=== PATIENT | male | born 1995 | race Caucasian/White ===

== ENCOUNTER 2024-10-27 15:04 | Outpatient (AMB) | payer OTHER, SELFPAY ==
--- NOTE | 2024-10-27 15:21 | A.OFFPC_ITS ---
Vital Signs 10/27/24 15:23 Height 5 ft 8.11 in Weight 235 lb 4 oz BMI 35.7 BP 130/68 Blood Pressure Location Lt brachial Position Sitting Pulse 84 Pulse Source Pulse Oximeter Temp 97.3 F Temp Source Temporal Artery Scan Pulse Oximetry (%) 96 Oxygen Delivery Method Room Air Intake Visit Reasons: New Patient Intake Note: Patient is a new patient here to establish care for ADHD, Autism, Tourette syndrome. Transferring care from Dr Dickson ([facility]). Medical records have been requested and have not received. Blending Supervisor Required: No Technical Support Assistant: Present Accompanied by: Grand Parent Allergies No Known Allergies Allergy (Verified 10/27/24 15:36) Medication List - Last Reconciled 10/27/24 by Bryan Mcdonald PA-C Unobtainable Tobacco use date assessed: 10/27/24 Dental Screening Dental Screen Date: 10/27/24 Did you have a dental visit in the last 12 months?: Yes Did you have a dental problem in the last 6 months where you did not have access to dental care?: No Was dental information given to patient?: Patient has dentist HPI New Patient HPI Details The patient is a 29-year-old male presenting with autism spectrum disorder for ongoing management and assessment of associated behavioral and social issues. Previously followed by Dr. Dickson in pediatric care due to disability, the patient transitioned to adult care but has not had consistent physician follow-ups in recent years. The patient?s autism has resulted in significant social isolation and anxiety, impacting daily activities and employability. He has experienced other behavioral challenges including ADHD and Tourette's Syndrome, previously managed with Concerta during his school years, but has not continued medication since graduation. Speech delays were addressed with early life speech therapy. Asthma is a component of his medical history, currently controlled without pharmacotherapy. The patient?s heart murmur noted at resolved spontaneously. Current concerns center around managing autism-related behaviors, social engagement limitations, and securing assistance and services for disability assessment, compounded by the need to address obesity. [facility] Surgical History History of appendectomy Family History (Updated 10/27/24 @ 15:45 by Bryan Mcdonald PA-C) Father DMII (diabetes mellitus, type 2) Brother Autism Social History Housing: House Alcohol intake: never Patient Tobacco Use Status: Never used Tobacco e-Cigarette/Vaping Use: Never Used Second Hand Smoke Exposure: No service: No Current occupational status: unemployed and disabled Cognitive needs: No Hearing needs: No Vision needs: No Questionnaire PHQ-9 Over the last 2 weeks, how often have you been bothered by any of the following problems? 1. Little interest or pleasure in doing things: not at all 2. Feeling down, depressed, or hopeless: not at all 3. Trouble falling or staying asleep, or sleeping too much: not at all 4. Feeling tired or having little energy: not at all 5. Poor appetite or overeating: not at all 6. Feeling bad about yourself - or that you are a failure or have let yourself or your family down: not at all 7. Trouble concentrating on things, such as reading the newspaper or watching television: not at all 8. Moving or speaking so slowly that other people could have noticed. Or the opposite - being so fidgety or restless that you have been moving around a lot more than usual: not at all 9. Thoughts that you would be better off or of hurting yourself in some way: not at all Total score: 0 Depression Screening Interpretation: Negative Depression Screening Done: Yes 50810 - PHQ-9 Billing: Yes Source: Developed by Drs. Thom Pryor, Angelina Villagomez, Floyd Black and colleagues, with an educational sterling from [employer]. Thrive Questionnaire Date Thrive assessed: 10/27/24 I am a: Patient What is your living situation today?: I have a steady place to live Within the past 12 months, did the food you bought not last and you didn't have the money to get more?: Sometimes True Within the past 12 months, did you worry whether your food would run out before you got money to buy more?: I choose not to answer this question Do you have trouble paying for medicines?: No Do you have trouble getting transportation to medical appointments?: Yes Do you have trouble paying your heating and electricity bill?: No Do you have trouble taking care of your child, family member or friend?: No Do you have trouble with day-to-day activities such as bathing, preparing meals, shopping, managing finances, etc.?: No Are you currently unemployed and looking for a job?: Yes Are you interested in more education?: Yes Please select the resources that you would like help with: Job search/training Currently or been in a relationship where the following occur: No concerns reported THRIVE Score: 2 AUDIT C Alcohol Use Questionnaire (AUDIT-C) 1. How often do you have a drink containing alcohol?: Never Total Score: 0 BISI-7 AMB Questionnaire BISI-7 Date BISI - 7 assessed: 10/27/24 Feeling nervous, anxious, or on edge: 0 = Not at all Not being able to stop or control worryin = Not at all Worrying too much about different things: 0 = Not at all Trouble relaxin = Not at all Being so restless that it is hard to sit still: 0 = Not at all Becoming easily annoyed or irritable: 1 = Several days Feeling afraid as if something awful might happen: 0 = Not at all Total BISI-7 score (0-4 normal; 5-9 mild; 10-14 moderate; 15-21 severe): 1 Source: Developed by Drs. Thom Pryor, Angelina Villagomez, Floyd Black and colleagues, with an educational sterling from [employer]. BISI-7 Assessment Billing BISI-7 Assessment Tool: BISI-7 Assessment 42468 Review of Systems Const Denies headache(s) Eyes Denies loss of vision ENT Denies vertigo, Denies dizziness, Denies headache(s) and Denies sore throat Card Denies chest pain, Denies leg edema and Denies lightheadedness Resp Denies cough, Denies hemoptysis and Denies wheezing GI Denies abdominal pain, Denies melena, Denies constipation, Denies diarrhea and Denies vomiting Denies dysuria, Denies urinary frequency and Denies urinary urgency Musc Denies arthralgias, Denies joint swelling, Denies numbness and Denies tingling Neuro Denies Abnormal speech present, Denies behavioral changes, Denies vertigo, Denies dizziness, Denies headache(s), Denies loss of vision, Denies memory loss, Denies numbness and Denies tingling Psych Denies anxiety, Denies behavioral changes, Denies depression, Denies memory loss and Denies panic attacks Ramez/Lymph Denies easy bleeding and Denies easy bruising Aller/Immun Denies wheezing Physical exam (Primary Care) Vital Signs: Last Vital Signs Temp 97.3 F 10/27/24 15:23 Pulse 84 10/27/24 15:23 BP 130/68 10/27/24 15:23 Pulse Ox 96 10/27/24 15:23 Oxygen Delivery Method Room Air 10/27/24 15:23 BMI result Body Mass Index 35.7 BMI Assessment/Plan discussion: High BMI High, discussed plan: lifestyle, weight reduction, dietary and physical activity Tobacco/Smoking Status: Tobacco use Status Tobacco use date assessed 10/27/24 10/27/24 15:33 Patient Tobacco Use Status Never used Tobacco 10/27/24 15:33 e-Cigarette/Vaping Use Never Used 10/27/24 15:33 PHQ-9: PHQ-9 Score PHQ-9: Total score 0 10/27/24 15:41 Depression Screening Interpretation: Negative Thrive Assessment: Date of Thrive Assessment Date Thrive assessed 10/27/24 10/27/24 15:33 Currently or been in a relationship where the following occur: No concerns reported Const General: healthy appearing, no acute distress, alert and awake Nutritional Appearance: well nourished Orientation/consciousness: oriented to person, oriented to place and oriented to time HENMT Ears: TM's normal bilaterally General nose exam: Normal nasal mucous membranes and turbinates present Eyes Conjunctivae: conjunctivae normal Sclerae: sclerae normal Pupils: Equal, round and reactive pupils present Neck Neck: Yes no lymphadenopathy and Yes no JVD Thyroid: Thyroid normal Carotids: no bruits Resp Effort & Inspection: normal respiratory effort and not tachypneic Auscultation: no crackles, no rales, no rhonchi and no wheezes Cardio Rate: regular rate Rhythm: regular rhythm Heart sounds: no murmurs and normal S1 and S2 GI Palpation (GI): Soft to palpation, nontender, no hepatomegaly and no splenomegaly Auscultation: normal bowel sounds Skin General skin exam: no rashes or lesions noted and dry skin Neuro General: oriented to person, oriented to place and oriented to time Cranial nerves: Yes Equal, round and reactive pupils present Speech: No Abnormal speech present Gait exam (Neuro): Normal gait present Motor exam (neuro): no tremor noted Extrem Right upper extremity: full ROM Left upper extremity: full ROM Right lower extremity: full ROM; no edema Left lower extremity: full ROM; no edema Psych Mental Status: mental status grossly normal Speech and movement: Normal speech and movement present Affect: normal affect Attitude: cooperative Thought process: Normal thought process present Coding Level of Care Code New Pt Level 4 (73258) Diagnoses Autism F84.0 Attention deficit hyperactivity disorder (ADHD), predominantly hyperactive type F90.1 Attention deficit-hyperactivity disorder type: predominantly hyperactive Screening for diabetes mellitus (DM) Z13.1 Mild intermittent asthma without complication J45.20 Asthma complication type: uncomplicated Asthma persistence: intermittent Asthma severity: mild BISI (generalized anxiety disorder) F41.1 Class 2 obesity E66.812 Additional Codes PHQ-9 - 82367 - PHQ-9 Billing: Yes ([id number]) BISI-7 Assessment Billing - BISI-7 Assessment Tool: BISI-7 Assessment 65004 ([id number]) Assessment & Plan Assessment & Plan (1) Autism: Code(s): F84.0 - Autistic disorder Category: Medical Plan: Priority is given to addressing social isolation and anxiety. A psychiatric evaluation is recommended to explore therapeutic interventions. Enrollment in autism support networks or programs is advised. (2) ADHD: Code(s): F90.9 - Attention-deficit hyperactivity disorder, unspecified type Category: Medical Qualifiers: Attention deficit-hyperactivity disorder type: predominantly hyperactive Qualified Code(s): F90.1 - Attention-deficit hyperactivity disorder, predominantly hyperactive type Plan: Consider pharmacological intervention or reevaluation post-psychiatric assessment for symptom management. (3) Screening for diabetes mellitus (DM): Code(s): Z13.1 - Encounter for screening for diabetes mellitus Category: Medical Plan: As per HPI (4) Asthma: Code(s): J45.909 - Unspecified asthma, uncomplicated Category: Medical Qualifiers: Asthma complication type: uncomplicated Asthma persistence: intermittent Asthma severity: mild Qualified Code(s): J45.20 - Mild intermittent asthma, uncomplicated Plan: Patient's asthma has been well controlled without the use of medication. May have had a juvenile type asthma. Has not had to use albuterol inhaler in quite some time. (5) BISI (generalized anxiety disorder): Code(s): F41.1 - Generalized anxiety disorder Category: Medical Plan: Patient does seem to exhibit some signs of anxiety as well. Does pick at his skin quite often per family. (6) Class 2 obesity: Code(s): E66.812 - Obesity, class 2 Category: Medical Plan: Implement dietary and lifestyle changes aimed at weight reduction. Blood work to assess metabolic risks is planned. Orders: Orders Comprehensive Melissa. Panel Fast 10/27/24 Z13.1 - Encounter for screening for diabetes mellitus Complete Blood Count no Diff 10/27/24 Z13.1 - Encounter for screening for diabetes mellitus Referrals Psychiatry Outpatient Consultation Service F84.0 - Autistic disorder, F90.1 - Attention-deficit hyperactivity disorder, predominantly hyperactive type
[2024-10-27 15:23] VITALS: BP 130/68; PULSE 84; TEMP 36.3; O2SAT 96; BMI 35.7
--- OUTSIDE RECORDS SUMMARY | 2024-10-27 18:40 | XMS_ITS | Clinical Summary ---
Author Organization [facility] Address [address] [place] [address] Phone Care Team Providers Care Geomagnetist Name Role Phone Fito Dickson MD Primary Care Provider [phone] Allergies No known active allergies Medications No known medications Active Problems Problem Noted Date Diagnosed Date Obesity 03/18/2019 Abscess of axilla, left 05/12/2018 Family History Medical History Relation Name Comments No Known Problems Brother 1 Bryan No Known Problems Brother 2 Ramin No Known Problems Father No Known Problems Maternal Grandfather No Known Problems Maternal Grandmother No Known Problems Mother Renu No Known Problems Paternal Grandfather No Known Problems Paternal Grandmother Relation Name Status Comments Brother 1 Bryan Alive Brother 2 Ramin Alive Father Maternal Grandfather Maternal Grandmother Mother Renu Alive Paternal Grandfather Paternal Grandmother Social History Tobacco Use Types Packs/Day Years Used Date Smoking Tobacco: Never Smokeless Tobacco: Never Alcohol Use Standard Drinks/Week Comments Never 0 (1 standard drink = 0.6 oz pur e alcohol) Hunger/Food Answer Date Recorded No 05/27/2020 Stable Housing Answer Date Recorded No 05/27/2020 Transportation Concerns Answer Date Rec orded No 05/27/2020 Hazards in Home Answer Date Recorded No 07/17/2020 Financing Utilities Answer Date Recorde d No 07/17/2020 Safety at Home Answer Date Recorded No 07/17/2020 Outside Support Answer Date Recorded No 07/17/2020 Understanding Health Concerns Answer Da te Recorded No 07/17/2020 Financing Health Concerns Answer Date R ecorded No 07/17/2020 Missing School or Work Answer Date Daryl rded No 07/17/2020 Sex and Gender Information Value Date Recorded Sex Assigned at Not on file Legal Sex Male 3:21 PM EDT Gender Identity Not on file Sexual Orientation Not on file Last Filed Vital Signs Vital Sign Reading Time Taken Comments Blood Pressure 110/80 03/18/2019 9:28 AM EDT Pulse 68 03/18/2019 9:28 AM EDT Temperature 36.7 ??C (98.1 ??F) 03/18/2019 9:28 AM ED T Respiratory Rate - - Oxygen Saturation - - Inhaled Oxygen Concentration - - Weight 99.1 kg (218 lb 6.4 oz) 03/18/2019 9:28 A M EDT Height 173.1 cm (5' 8.15 ) 03/18/2019 9:28 AM ED T Body Mass Index 33.06 03/18/2019 9:28 AM EDT Plan of Treatment Health Maintenance Due Date Last Done Comments MMR Vaccines (1 of 1 - Stand viktor series) 1995 Varicella Vaccines (1 of 2 - 13+ 2-dose series) 2007 Consider Men B Vaccine (1 of 2 - Bexsero 2-dose series) 2010 DTaP,Tdap,and Td Vaccines (1 - Tdap) 01/28/2012 Hepatitis B Vaccines (1 of 3 - 19+ 3-dose series) 2013 Influenza Vaccines (#1) 2024 COVID-19 Vaccine (1 - 2023-2 5 season) 2024 HIB Vaccines Aged Out No longer eligi ble based on patient's age to complete this topic HPV Vaccines Aged Out No longer eligi ble based on patient's age to complete this topic Hepatitis A Vaccines Aged Out No long er eligible based on patient's age to complete this topic IPV Vaccines Aged Out No longer eligi ble based on patient's age to complete this topic Men B Vaccine Aged Out No longer elig ible based on patient's age to complete this topic Meningococcal Vaccine Aged Out No ursula meg eligible based on patient's age to complete this topic Pneumococcal Vaccine Aged Out No long er eligible based on patient's age to complete this topic Insurance [employer] Care Teams Geomagnetist Relationship Specialty Start Date End Date Fito Dickson MD [address] [place] [place] [address] PCP - General Pediatrics 05/12/18
== END 2024-10-27 15:58 | disposition home or self-care (01) ==
PROVIDERS: Visit Provider Physician Assistant
DX: J45.20 Mild intermittent asthma, uncomplicated (principal); F84.0 Autistic disorder; E66.812 Obesity, class 2; Z68.35 Body mass index [BMI] 35.0-35.9, adult; F90.1 Attention-deficit hyperactivity disorder, predominantly hyperactive type; Z13.1 Encounter for screening for diabetes mellitus; F41.1 Generalized anxiety disorder

== ENCOUNTER → 2024-10-27 15:04 | Outpatient (BNVA) | payer OTHER, SELFPAY | PROVIDERS: Visit Provider Physician Assistant | DX: F84.0 Autistic disorder (principal); F90.1 Attention-deficit hyperactivity disorder, predominantly hyperactive type; J45.20 Mild intermittent asthma, uncomplicated; F41.1 Generalized anxiety disorder; E66.812 Obesity, class 2; Z68.35 Body mass index [BMI] 35.0-35.9, adult; Z71.3 Dietary counseling and surveillance | CPT/HCPCS: 96127; 99202 ==

== ENCOUNTER 2024-11-02 09:25 | Outpatient (REF) | payer OTHER, SELFPAY ==
[2024-11-02 09:53] LABS: Hematocrit 44.8 % (42.0-52.0); Hemoglobin 15.2 g/dl (14.0-18.0); Mean Corpuscular HGB Conc 33.9 g/dl (31.0-36.0); Mean Corpuscular Hemoglobin 29.5 pg (27.0-33.0); Mean Corpuscular Volume 86.8 fL (80.0-98.0); Mean Platelet Volume 10.2 fL (9.4-12.4); Platelet Count 236 X10*3/uL (160-400); Red Blood Count 5.16 X10*6/uL (4.60-5.80); Red Cell Distribution Width 11.5 % (11.0-16.0); White Blood Count 7.1 X10*3/uL (4.8-10.8)
[2024-11-02 10:32] LABS: Alanine Aminotransferase 60 U/L (0-40); Albumin Level 4.2 g/dL (3.5-5.0); Alkaline Phosphatase 118 U/L (39-117); Anion Gap 11 (12-20); Aspartate Amino Transferase 31 U/L (5-37); Bilirubin Total 0.9 mg/dL (0.0-1.0); Blood Urea Nitrogen 18 mg/dL (9-16); Calcium 9.2 mg/dL (8.4-10.2); Carbon Dioxide 28 mmol/L (22-29); Chloride 108 mmol/L (96-108); Estimated Glomerular Filt Rate > 60; Glucose Fasting 89 mg/dL (60-99); Potassium 3.8 mmol/L (3.3-5.1); Sodium 143 mmol/L (135-145)
--- OUTSIDE RECORDS SUMMARY | 2024-11-02 10:33 | XMS_ITS | Clinical Summary ---
Author Organization [facility] Address [address] [place] [address] Phone Care Team Providers Care Director Of Casino Name Role Phone Fito Dickson MD Primary Care Provider [phone] Allergies No known active allergies Medications No [...] complete this topic Insurance [employer] Care Teams Director Of Casino Relationship Specialty Start Date End Date Fito Dickson MD [address] [facility] [place] [address] PCP - General Pediatrics 05/12/18
== END 2024-11-02 09:26 | disposition home or self-care (01) ==
LOC: HO.LAB 09:25
PROVIDERS: PCP Physician Assistant; Visit Provider Physician Assistant
DX: Z13.1 Encounter for screening for diabetes mellitus (principal)
CPT/HCPCS: 36415; 80053; 85027

== ENCOUNTER 2024-11-29 12:29 | Outpatient (REF) | payer OTHER, SELFPAY ==
--- NOTE | ~2024-11-29 | US_ITS ---
CLINICAL HISTORY: R74.8 - Abnormal levels of other serum enzymes US abdomen limited Comparison: None Findings: Fatty infiltration of the liver without focal abnormality. Visualized pancreas unremarkable. Gallbladder unremarkable without stones or wall thickening. Common duct 2.9 mm diameter. No ultrasonographic Carrasco sign. Right kidney normal, 10.8 cm in length. Impression: Fatty infiltration of the liver No acute process This document has been electronically signed by: Darrell Benito MD on 11/29/2024 20:40:23
--- OUTSIDE RECORDS SUMMARY | 2024-11-29 14:07 | XMS_ITS | Clinical Summary ---
Author Organization [facility] Address [address] [place] [address] Phone Care Team Providers Care Pulmonology Physician Name Role Phone Fito Dickson MD Primary Care Provider [phone] Allergies No known active allergies Medications No [...] of 2 - 13+ 2-dose series) 2007 DTaP,Tdap,and Td Vaccines (1 - Tdap) 01/28/2012 [...] complete this topic Insurance [employer] Care Teams Pulmonology Physician Relationship Specialty Start Date End Date Fito Dickson MD [facility] [place] [address] PCP - General Pediatrics 05/12/18
== END 2024-11-29 12:30 | disposition home or self-care (01) ==
LOC: HO.US 12:29
PROVIDERS: PCP Physician Assistant; Visit Provider Physician Assistant
DX: R74.8 Abnormal levels of other serum enzymes (principal)
CPT/HCPCS: 76705

== ENCOUNTER → 2024-11-29 12:31 | Outpatient (BNV) | payer OTHER, SELFPAY | PROVIDERS: PCP Physician Assistant; Visit Provider Radiology Diagnostic Radiology | DX: R74.01 Elevation of levels of liver transaminase levels (principal); K76.0 Fatty (change of) liver, not elsewhere classified | CPT/HCPCS: 76705 ==

== ENCOUNTER → 2024-12-02 13:06 | Outpatient (BNVA) | payer OTHER, SELFPAY | PROVIDERS: PCP Physician Assistant ==

== ENCOUNTER → 2024-12-13 14:29 | Outpatient (BNVA) | payer MEDICAID, SELFPAY | PROVIDERS: PCP Physician Assistant ==

== ENCOUNTER 2025-02-28 13:35 | Outpatient (REF) | payer OTHER, SELFPAY ==
[2025-02-28 15:37] LABS: Alanine Aminotransferase 48 U/L (0-40); Albumin Level 4.6 g/dL (3.5-5.0); Alkaline Phosphatase 112 U/L (39-117); Anion Gap 12 (12-20); Aspartate Amino Transferase 33 U/L (5-37); Bilirubin Total 0.7 mg/dL (0.0-1.0); Blood Urea Nitrogen 20 mg/dL (9-16); Calcium 9.4 mg/dL (8.4-10.2); Carbon Dioxide 27 mmol/L (22-29); Chloride 108 mmol/L (96-108); Estimated Glomerular Filt Rate > 60; Glucose Random 83 mg/dL (60-115); Potassium 4.1 mmol/L (3.3-5.1); Sodium 143 mmol/L (135-145); Total Protein 7.8 g/dL (6.5-8.0)
== END 2025-02-28 13:36 | disposition home or self-care (01) ==
LOC: HO.LAB 13:35
PROVIDERS: PCP Physician Assistant; Visit Provider Physician Assistant
DX: Z00.00 Encounter for general adult medical examination without abnormal findings (principal); Z23 Encounter for immunization; F84.0 Autistic disorder; F90.1 Attention-deficit hyperactivity disorder, predominantly hyperactive type; F41.1 Generalized anxiety disorder; R74.8 Abnormal levels of other serum enzymes
CPT/HCPCS: 36415; 80053; 90471; 90715; 99395

== ENCOUNTER 2025-02-28 13:35 | Outpatient (AMB) | payer OTHER, SELFPAY ==
--- NOTE | 2025-02-28 13:40 | A.OFFPC_ITS ---
Vital Signs 02/28/25 13:41 Height 5 ft 8.11 in BP 112/64 Blood Pressure Location Lt brachial Position Sitting Pulse 94 Pulse Source Pulse Oximeter Temp 97.5 F Temp Source Temporal Artery Scan Pulse Oximetry (%) 96 Oxygen Delivery Method Room Air Intake Visit Reasons: pe Packaging Operator Required: No Accompanied by: Grand Parent Allergies No Known Allergies Allergy (Verified 02/28/25 13:55) Medication List - Last Reconciled 02/28/25 by Bryan Mcdonald PA-C chlorhexidine gluconate 0.12% buccal BID Tobacco use date assessed: 10/27/24 Dental Screening Dental Screen Date: 10/27/24 HPI pe HPI Details The patient is a 30-year-old male presenting today for a routine annual physical.. Patient has a past medical history significant for generalized anxiety disorder, autism spectrum disorder and ADHD. The patient?s autism has resulted in significant social isolation and anxiety, impacting daily activities and employability. He has experienced other behavioral challenges including ADHD and Tourette's Syndrome, previously managed with Concerta during his school years, but has not continued medication since graduation. Speech delays were addressed with early life speech therapy. Current concerns center around managing autism-related behaviors, social engagement limitations, and securing assistance and services for disability assessment, Patient's family is looking to get Glenn reassessed by by psychiatrist to get the diagnosis of autism so that they can be candidates for disability Asthma is a component of his medical history, currently controlled without pharmacotherapy. Vaccines: Up-to-date with COVID vaccine, needs tetanus vaccine [facility] Surgical History History of appendectomy Family History Father DMII (diabetes mellitus, type 2) Brother Autism Social History Housing: House Alcohol intake: never Patient Tobacco Use Status: Never used Tobacco e-Cigarette/Vaping Use: Never Used Second Hand Smoke Exposure: No service: No Current occupational status: unemployed and disabled Cognitive needs: No Hearing needs: No Vision needs: No Questionnaire Thrive Questionnaire Date Thrive assessed: 02/28/25 I am a: Patient What is your living situation today?: I have a steady place to live Within the past 12 months, did the food you bought not last and you didn't have the money to get more?: Sometimes True Within the past 12 months, did you worry whether your food would run out before you got money to buy more?: I choose not to answer this question Do you have trouble paying for medicines?: No Do you have trouble getting transportation to medical appointments?: Yes Do you have trouble paying your heating and electricity bill?: No Do you have trouble taking care of your child, family member or friend?: No Do you have trouble with day-to-day activities such as bathing, preparing meals, shopping, managing finances, etc.?: No Are you currently unemployed and looking for a job?: Yes Are you interested in more education?: Yes Please select the resources that you would like help with: Job search/training Currently or been in a relationship where the following occur: No concerns reported THRIVE Score: 2 BISI-7 AMB Questionnaire BISI-7 Date BISI - 7 assessed: 10/27/24 Source: Developed by Drs. Thom Pryor, Angelina Villagomez, Floyd Black and colleagues, with an educational sterling from [employer]. Review of Systems Const Denies body aches, Denies chills, Denies excessive sweating, Denies fatigue, Denies fever(s) and Denies headache(s) Eyes Denies blurry vision ENT Denies dysphagia, Denies vertigo, Denies dizziness, Denies headache(s), Denies hearing loss and Denies tinnitus Card Denies chest pain, Denies chest pain with activity, Denies syncope, Denies irregular heart rhythm and Denies dyspnea Resp Denies chest congestion, Denies cough, Denies hemoptysis, Denies dyspnea and Denies wheezing GI Denies abdominal pain, Denies melena, Denies hematochezia, Denies coffee ground emesis, Denies dysphagia, Denies diarrhea, Denies nausea and Denies vomiting Denies difficulty urinating, Denies dysuria, Denies urinary frequency, Denies urinary hesitancy and Denies urinary urgency Musc Denies arthralgias, Denies limited range of motion, Denies muscle cramps and Denies muscle weakness Skin/Breast Denies rash and Denies skin ulcer Neuro Denies Abnormal speech present, Denies confusion, Denies vertigo, Denies dizziness, Denies syncope, Denies headache(s), Denies memory loss and Denies seizure-like activity Psych Denies anxiety, Denies confusion, Denies depression, Denies memory loss, Denies panic attacks and Denies paranoia Endo Denies excessive sweating, Denies fatigue, Denies flushing, Denies polydipsia and Denies polyuria Aller/Immun Denies wheezing Physical exam (Primary Care) Vital Signs: Last Vital Signs Temp 97.5 F 02/28/25 13:41 Pulse 94 02/28/25 13:41 BP 112/64 02/28/25 13:41 Pulse Ox 96 02/28/25 13:41 Oxygen Delivery Method Room Air 02/28/25 13:41 Tobacco/Smoking Status: Tobacco use Status Tobacco use date assessed 10/27/24 02/28/25 13:48 Patient Tobacco Use Status Never used Tobacco 02/28/25 13:48 e-Cigarette/Vaping Use Never Used 02/28/25 13:48 Thrive Assessment: Date of Thrive Assessment Date Thrive assessed 02/28/25 02/28/25 13:48 Currently or been in a relationship where the following occur: No concerns reported Const General: cooperative, comfortable, no acute distress, alert and awake; No confusion Orientation/consciousness: oriented to person, oriented to place, patient oriented x3 and No confusion HENMT Head: Yes normocephalic Ears: external ears normal and TM's normal bilaterally Face and sinus: No sinus tenderness Mouth: Normal oral and palatal mucosa present and tongue normal Teeth and gingiva: dentition normal and gingiva normal Throat: Yes posterior oropharynx normal, Yes tonsils normal and Yes uvula midline Eyes Conjunctivae: conjunctivae normal Sclerae: sclerae normal Pupils: Equal, round and reactive pupils present EOM: EOMs intact bilaterally Direct Ophthalmoscopy: No no photophobia Neck Neck: Yes no lymphadenopathy, No tender and Yes no JVD Thyroid: Thyroid normal Carotids: no bruits Chest Chest palpation & inspection: no tenderness Resp Effort & Inspection: normal respiratory effort, no audible wheezes, not labored and no stridor Auscultation: no crackles, no rales, no rhonchi and no wheezes Cardio Jugular venous distension: no JVD Rate: regular rate, not bradycardic and not tachycardic Rhythm: regular rhythm Bruits: no carotid bruits Peripheral pulses: Peripheral pulses 2+ throughout GI Inspection: Yes normal to inspection, No abdominal wall ecchymosis and No visible herniation Palpation (GI): Soft to palpation, nontender, no guarding, not rigid and No hepatosplenomegaly present Auscultation: normoactive bowel sounds General: Yes no CVA tenderness Back/Spine/Pelvis Back: no CVA tenderness and No back tenderness Cervical Spine: cervical ROM normal Thoracic/Lumbar Spine: thoracic and lumbar spine normal to inspection, straight leg raise negative bilaterally, No thoraco-lumbar ROM limited and No lumbar spinal tenderness Skin Lesions: no lesions Rashes: no rashes Wounds: no wounds Neuro General: oriented to person, oriented to place, patient oriented x3, CN's II-XI intact bilaterally and No confusion Cranial nerves: Yes Equal, round and reactive pupils present and Yes Normal accommodation reflex present Cognition (Neuro): normal cognition Speech: No Abnormal speech present Gait exam (Neuro): Normal gait present Motor exam (neuro): 5/5 motor strength present throughout Extrem Right upper extremity: full ROM; no cyanosis Left upper extremity: full ROM; no cyanosis Right lower extremity: no edema Left lower extremity: no edema Psych Other: VERY QUIET DURING EXAM, BLUNTED AFFECT. ANSWERS APPROPRIATELY YES AND NO TO QUESTIONING Appearance: grossly normal Mental Status: mental status grossly normal Affect: No normal affect and Blunted affect present Attitude: cooperative Thought process: Normal thought process present Insight: Fair insight present (Psych) Judgement: Fair judgement present (Psych) Immunizations Boostrix Tdap 2.5 Lf unit-8 mcg-5 Lf/0.5 mL intramuscular syringe Performing Provider: Bryan Mcdonald PA-C [facility]forming [facility]: [facility] Administered by: MC Knox on 02/28/25 14:24 Dose Route Admin Location Dispensed Lot Number Expiration Date [facility] [employer] Specialist 0.5 mL IM Left Deltoid 0.5 mL [id number] 04/29/27 21248-556-73 Your Style Unzipped Total Dispensed Waste 0.5 mL 0 % VIS Given Date VIS Provided VIS Publication Date 02/28/25 Single Vaccine 24 Eligibility Eligibility Date Funding Source Not [facility] Eligible 02/28/25 Private Coding Level of Care Code Est Pt Prev Care [id number]([id number]) Diagnoses Annual physical exam Z00.00 Autism F84.0 Attention deficit hyperactivity disorder (ADHD), predominantly hyperactive type F90.1 Attention deficit-hyperactivity disorder type: predominantly hyperactive BISI (generalized anxiety disorder) F41.1 Assessment & Plan Assessment & Plan (1) Annual physical exam: Code(s): Z00.00 - Encounter for general adult medical examination without abnormal findings Category: Medical Plan: As per HPI (2) Autism: Code(s): F84.0 - Autistic disorder Category: Medical Plan: Priority is given to addressing social isolation and anxiety. A psychiatric evaluation is recommended to explore therapeutic interventions and justification for disability benefits. Enrollment in autism support networks or programs is advised. (3) ADHD: Code(s): F90.9 - Attention-deficit hyperactivity disorder, unspecified type Category: Medical Qualifiers: Attention deficit-hyperactivity disorder type: predominantly hyperactive Qualified Code(s): F90.1 - Attention-deficit hyperactivity disorder, predominantly hyperactive type Plan: Consider pharmacological intervention or reevaluation post-psychiatric assessment for symptom management. (4) BISI (generalized anxiety disorder): Code(s): F41.1 - Generalized anxiety disorder Category: Medical Plan: Patient does seem to exhibit some signs of anxiety as well. Does pick at his skin quite often per family. Orders: Orders TDaP Immunization 02/28/25 Z23 - Encounter for immunization Comprehensive Met. Panel 02/28/25 R74.8 - Abnormal levels of other serum enzymes Referrals Psychiatry Referral F84.0 - Autistic disorder
[2025-02-28 13:41] VITALS: BP 112/64; PULSE 94; TEMP 36.4; O2SAT 96
--- OUTSIDE RECORDS SUMMARY | 2025-02-28 14:05 | XMS_ITS | Clinical Summary ---
Author Organization [facility] Address [address] [place] [address] Phone Care Team Providers Care Assistant Womens Volleyball Coach Name Role Phone Fito Dickson MD Primary Care Provider [phone] Allergies No known active allergies Medications No [...] 68 03/18/2019 9:28 AM EDT Temperature 36.7 C (98.1 F) 03/18/2019 9:28 AM EDT Respiratory Rate - - Oxygen Saturation - [...] complete this topic Insurance [employer] Care Teams Assistant Womens Volleyball Coach Relationship Specialty Start Date End Date Fito Dickson MD [id number] [place] [address] PCP - General Pediatrics 05/12/18
== END 2025-02-28 14:23 | disposition home or self-care (01) ==
LOC: HO.HMCH 13:36
PROVIDERS: Visit Provider Physician Assistant
DX: Z00.00 Encounter for general adult medical examination without abnormal findings (principal); F84.0 Autistic disorder; F90.1 Attention-deficit hyperactivity disorder, predominantly hyperactive type; F41.1 Generalized anxiety disorder

== ENCOUNTER 2025-04-29 11:28 | Outpatient (REF) | payer OTHER, SELFPAY ==
--- OUTSIDE RECORDS SUMMARY | 2025-04-29 12:30 | XMS_ITS | Clinical Summary ---
Author Organization [facility] Address [address] [place] [id number] Phone Care Team Providers Care Sewer And Drain Technician Name Role Phone Fito Dickson MD Primary Care Provider [phone] Allergies No known active allergies Medications No [...] of 3 - 19+ 3-dose series) 2013 HPV Vaccines (1 - 3-dose SCD M series) 2021 COVID-19 Vaccine (1 - 2023-2 5 season) 2024 Influenza Vaccines (#1) 2025 HIB Vaccines Aged Out No longer eligi [...] complete this topic Insurance [employer] Care Teams Sewer And Drain Technician Relationship Specialty Start Date End Date Fito Dickson MD [address] [place] [address] [place] [id number] PCP - General Pediatrics 05/12/18
[2025-05-03 10:02] LABS: TS Negative Control Passed; TS Panel A 2; TS Panel B 2; TS Positive Control Passed; TSpotTB Negative (Negative)
== END 2025-04-29 11:29 | disposition home or self-care (01) ==
LOC: HO.LAB 11:28
PROVIDERS: PCP Physician Assistant; Visit Provider Physician Assistant
DX: Z11.1 Encounter for screening for respiratory tuberculosis (principal)
CPT/HCPCS: 36415; 86481